=== PATIENT | male | born 1950 | race Caucasian/White ===

== ENCOUNTER → 2018-07-23 | Outpatient (CLI) | payer MEDICARE, OTHER ==
[~2018-07-23] MED LIST: ASPIRIN 81M81 MG/TA2 PO; PRINIVIL2.5 MG
== END ==
LOC: COL.RAD 07:42
DX: M16.0 Bilateral primary osteoarthritis of hip (principal)
CPT/HCPCS: J3301; Q9967

== ENCOUNTER → 2018-10-03 | Outpatient (CLI) | payer MEDICARE, OTHER | LOC: COL.RAD 10:21 | DX: Z01.818 Encounter for other preprocedural examination (principal); M48.061 Spinal stenosis, lumbar region without neurogenic claudication; Z98.1 Arthrodesis status | CPT/HCPCS: A9585 ==

== ENCOUNTER 2020-10-26 11:06 | Inpatient (IN) | payer MEDICARE, OTHER ==
[~2020-10-26] VITALS: Ht 162.7 cm; Wt 66.5 kg
[2020-11-22] VITALS (10 sets, daily range): BP systolic 108–133; BP diastolic 48–68; PULSE 56–71; TEMP 97.5–98.3
[2020-11-22] MEDS ORDERED: LIPITOR 40MG TA40 MG (06:15)
[2020-11-22] MEDS ORDERED: HYZAAR 25 MG-101 TAB PO (06:16)
[2020-11-22] MEDS ORDERED: FLOMAX 0.40.4 MG/CAP PO (06:17)
[2020-11-22] MEDS ORDERED: VOLTAREN-XR100 MG PO (06:18)
--- NOTE | 2020-11-22 06:30 | NUR ---
PATIENT AND AMBULATED INTO SDC UNIT WITH STEADY GAIT. PATIENT IS ALERT AND ORIENTED X 4. CONSENT EXPLAINED AND PATIENT SIGNED. ASSESSMENT COMPLETED. SEE INPATIENT PHYSICAL ASSESSMENT FORM. ASSESSMENT WITHIN NORMAL LIMITS. PATIENT STATES HE IS NERVOUS. IV STARTED RIGHT HAND WITH 20 GAUGE X 1 STICK. LAB IN ROOM AND DRAWN.
[2020-11-22 06:37] LABS: BASO # 0.1 (0.0-0.2); BASO % 0.6 % (0.0-2.0); EOS # 0.2 (0.0-0.7); EOS % 1.7 % (0-4.0); GRAN # 7.5 (1.4-6.5); GRAN % 75.6 % (42.2-75.2); HEMATOCRIT 41.7 % (42.0-52.0); HEMOGLOBIN 14.3 g/dl (13.5-18.0); LYMPH # 1.1 (1.2-3.4); LYMPH % 11.5 % (20.0-51.0); MEAN CELL VOLUME 95 fl (80.0-100.0); MEAN CORPUSCULAR HEMOGLOBIN 33 pg (27.0-31.0); MEAN CORPUSCULAR HGB CONC 34 g/dl (33.0-37.0); MONO % 10.1 % (1.7-9.3); PLATELET COUNT 211 K/mm3 (130-400); RED BLOOD COUNT 4.39 M/mm3 (4.20-5.60); REDCELL DISTRIBUTION WIDTH-CV 12.1 % (11.5-14.5)
[2020-11-22 06:52] LABS: ALBUMIN 4.6 gm/dL (3.5-5.0); BILIRUBIN,TOTAL 1.1 mg/dL (0.0-1.0); CALCIUM 9.6 mg/dL (8.4-10.2); CREATININE, serum 0.82 (0.66-1.25); POTASSIUM 3.9 mmol/L (3.4-5.0); TOTAL PROTEIN 7.4 gm/dL (6.4-8.2)
--- NOTE | 2020-11-22 12:30 | NUR ---
Patient up from OR. Alert and oriented x 3. Ponce to DD with bloody urine present. Lap sites x 6 with edges well approximated. Denies pain at this time. Post op VSS and post op fluids infusing at this time. Denies needs at this time. Spouse at bedside.
--- NOTE | 2020-11-22 18:27 | NUR ---
Patient doing well post op. Ponce maintained to DD with dark-bloody urine. Up to recliner for supper. Tolerating clear liquid diet, patient advanced per orders. Up ambulating in capps with SBA. Fluids infusing per orders. Patient denies pain or furhter needs at this time.
--- NOTE | 2020-11-22 22:25 | NUR ---
Patient assessed around 2029. Alert and oriented x 4, and able to make needs known. Reported level 6 pain to abdomen. Given scheduled APAP, then scheduled Toradol. Did get up and ambulate in halls with staff as well. Peripheral INT to right hand, and IV to left forearm with fluids running per orders. Denies SOB and dyspnea. LS CTA. Respirations even and unlabored. HRR. Capillary refill less than 3 seconds. Non-tenting skin turgor. BSAx4. 6 lap sites to abdomen, all open to air, and without redness, warmth, and drainage. Indwelling ortiz catheter patent, draining clear, red tinged urine. No edema. Voices no further questions, needs, or concerns at this time. Resting in bed with call light within reach.
[2020-11-23 00:30] VITALS: BP 118/63; BP 18/63; PULSE 67; TEMP 98.1
[2020-11-23 04:17] VITALS: BP 118/60; PULSE 65; TEMP 98.2
--- NOTE | 2020-11-23 05:51 | NUR ---
Patient has been resting in bed with call light within reach. Has reported some discomfort to abdomen this shift, and received scheduled medication per orders. Indwelling ortiz catheter with yellow, to blood tinged urine. Voices no questions, needs, or concerns at this time. Resting in bed with call light within reach.
[2020-11-23 07:00] LABS: HEMATOCRIT 32.5 % (42.0-52.0)
[2020-11-23 07:07] LABS: CALCIUM 8.4 mg/dL (8.4-10.2); CREATININE, serum 1.03 (0.66-1.25); POTASSIUM 3.8 mmol/L (3.4-5.0)
[2020-11-23 07:30] VITALS: BP 127/65; PULSE 69; TEMP 98.4
--- NOTE | 2020-11-23 09:50 | NUR ---
Initial visit; Gregoria and his thanked Laundry Equipment Operator for looking in on him and offering God's blessings and to keep him in her prayers.
[2020-11-23 11:13] VITALS: BP 123/67; PULSE 69; TEMP 98.4
--- NOTE | 2020-11-23 11:34 | NUR ---
SW met with the patient to discuss discharge plan. The patient lives in [place] with his , Esther ([phone]). He reports independence with ADLs and has a walker. The patient's PCP is Dr. Nallely Garcia and he receives his medications from [facility]. He reports no difficulties obtaining his meds. The patient does not have a DPOA-HC in EMR, but he states that he does have one completed and that it designates his . The patient plans to return home with his upon discharge. No additional needs at this time. *Discharge plan: home with *
--- NOTE | 2020-11-23 11:37 | NUR ---
Patient alert and oriented, answers questions appropriately. See assessment. Abdomen soft, non tender, non distended. Bowel sounds active x4 quads. +Flatus. Lap sites to abdomen with edges well approximated, no redness or drainage noted. Ponce catheter in place, patent, draining clear antonette urine. ERAS protocol reviewed with patient. No c/o at this time.
--- NOTE | 2020-11-23 16:10 | NUR ---
Discharge instructions reviewed with patient and spouse, verbalized understanding. Ponce catheter cares and bag changes reviewed with return demonstration. Discharged via wheelchair to auto/home with spouse at 1610.
== END 2020-11-23 16:10 | disposition home or self-care (01) | DRG 708 ==
LOC: INPTSU 11-22 05:50 → SURG 11-22 05:50
PROVIDERS: ADMIT Urology
PROC: 0VT04ZZ Resection of Prostate, Percutaneous Endoscopic Approach (ICD-10-PCS; principal; 2020-11-23)
PROC: 07BC4ZZ Excision of Pelvis Lymphatic, Percutaneous Endoscopic Approach (ICD-10-PCS; 2020-11-23)
PROC: 8E0W4CZ Robotic Assisted Procedure of Trunk Region, Percutaneous Endoscopic Approach (ICD-10-PCS; 2020-11-23)
DX: C61 Malignant neoplasm of prostate (principal)
CPT/HCPCS: A4314; J0690; J1100; J1885; J2250; J2405; J2704; J2710; J3010; J7040; J7120

== ENCOUNTER → 2022-04-24 | Outpatient (CLI) | payer MEDICARE, OTHER ==
[~2022-04-24] MED LIST changes: +FLOMAX 0.40.4 MG/CAP PO; +HYZAAR 25 MG-101 TAB PO; +LIPITOR 40MG TA40 MG; +VOLTAREN-XR100 MG PO
== END ==
LOC: COL.RAD 13:56
DX: M46.1 Sacroiliitis, not elsewhere classified (principal)
CPT/HCPCS: G0260; J3301

== ENCOUNTER → 2022-06-22 | Outpatient (CLI) | payer MEDICARE, OTHER ==
[~2022-06-22] MED LIST changes: +LIPITOR 40MG TA40 MG PO
== END ==
LOC: COL.RAD 11:40
DX: M46.1 Sacroiliitis, not elsewhere classified (principal)
CPT/HCPCS: J3301

== ENCOUNTER → 2023-07-02 | Outpatient (CLI) | payer MEDICARE, OTHER ==
[~2023-07-02] MED LIST changes: +Gadoterate 15 ML VIAL IV ONE
== END ==
LOC: COL.RAD 07-01 13:00
DX: M51.34 Other intervertebral disc degeneration, thoracic region (principal); M48.061 Spinal stenosis, lumbar region without neurogenic claudication; M43.26 Fusion of spine, lumbar region
CPT/HCPCS: A9575